=== PATIENT | female | born 1985 | race Caucasian/White ===

== ENCOUNTER 2017-03-22 21:43 | Emergency (ER) | payer OTHER ==
[~2017-03-22] VITALS: Ht 172.7 cm; Wt 68.2 kg
[2017-03-22 21:47] VITALS: BP 129/78; PULSE 100; RESP 12; O2SAT 100
[2017-03-22 22:07] VITALS: BP 128/84; PULSE 94; O2SAT 99
--- NOTE | 2017-03-22 22:08 | ED.REPORT ---
HPI-Extremity Problem Lower Date of Service Mar 22, 2017 ED Provider: Bart Lorenzana DO A 31 year old female with no pertinent history is brought to the ED via EMS due to right ankle pain. The pt was at a roller derby this evening when she fell, experiencing immediate right ankle pain that has persisted since. No other trauma is reported. The pt last ate at 14:00. She was given morphine and Zofran en route. Nursing Notes Stated Complaint: POSS DISLOCATED R ANKLE FRACTURE Chief Complaint: Extremity Trauma Nursing Notes Reviewed: Yes Allergies: Coded Allergies: latex (Verified Allergy, Intermediate, 03/22/17) General Time Seen by MD: 22:07 Chief Complaint Ankle injury right Hx Obtained From: Patient, EMS Arrived By: Ambulance Onset Occurred: 1 - 4 hours ago Symptom Duration: Since onset Recent Healthcare: No recent doctor visit, No recent hospitalization Similar Sx Previous: No Past Medical History Past Medical History none reported Past Surgical History none reported Smoking History Unknown if Ever Smoker Social History Other Social History: Good social support Ambulatory Status Independent Review of Systems Musculoskeletal: Reports: Extremity pain, Denies: Back pain, Neck pain Skin: Denies Rash Complete sys rev & neg: except as marked. Respiratory: Denies: Non-productive cough, Shortness of breath Cardiovascular: Denies: Chest pain GI: Denies: Abdominal pain, Vomiting Physical Exam Initial Vital Signs Vital Signs (First) Date Time Temp Pulse Resp B/P Pulse Ox O2 Delivery O2 Flow Rate FiO2 03/22/17 21:47 37 100 12 129/78 100 Room Air Initial VS: Reviewed Lower Extremity / Pelvis / MS: Neurologic intact, Vascular intact Ankle / Foot: Neurologic intact, Vascular intact obvious posterior deformity of the right ankle General/Constitutional: Awake, Alert Respiratory / Chest: Atraumatic, Breath sounds NL, Breath sounds = bilat, No respiratory distress Cardiovascular: Heart rate NL, Regular rhythm, Heart sounds NL Skin: Color NL, No rash, Warm, Dry Neurologic: Oriented X3, Speech NL, No motor deficits, No sensory deficits Head / Eyes: Atraumatic, Normocephalic, PERRL, EOMI ENT: Atraumatic, Airway patent, Mucous membranes moist Neck: Atraumatic, Supple, Full range of motion Abdomen: Atraumatic, Soft, Non-tender Back: Atraumatic, Full range of motion Upper Extremity / MS: Atraumatic, Full range of motion Psychiatric: Affect NL, Mood NL Interpretation & Diagnostics Lab Results Interpretation Test 03/22/17 23:29 Hold Purple Top Tube Received (Received) Hold Blue Top Tube Received (Received) Hold [place] Top Tube Received (Received) Pulse Oximetry Interpretation Pulse Oximetry Interpretation: 100% on room air Pulse Oximetry: Pulse Ox normal X-Ray Interpretation Xray Interpretation: trimalleolar fracture dislocation X-Ray Ordered: Ankle right Interpretation / Wet Read by: Wet read ED physician Xray Interpretation: reduced posterior ankle fracture dislocation X-Ray Ordered: Ankle right Interpretation / Wet Read by: Wet read ED physician Procedures Proced Mod Sedation/Analgesia No history of sedationanalgesia Time: 22:40 Procedure Performed by: ED physician Sedation Time: 10 - 15 min Consent / Setup: Informed consent provided, Consent from patient, Time-out performed, Hand hygiene observed, Stand sterile technique, Position supine Indication: Fracture reduction Preparation: wire stitcher operator applied, Pulse oximeter applied, Constant attendance, IV access established, Eval last meal time, Supplemental oxygen VS Prior to Procedure: All vital signs normal, O2 saturation normal, Blood pressure normal, Heart Rate normal, Respiratory rate normal Mallampati: Class & Anatomy: 1 tonsils/uvula/s palate Airway Exam: Normal facial anatomy CVS/Resp Exam: Normal breath sounds, Normal heart sounds Neuro Exam: Alert Sedation: Sedation: Propofol, Analgesia: Fentanyl ASA Classification: 1 normal healthy patient Response During Procedure: Handled secretions adeq, Maintained airway well, Oxygenation stable, Sedation appropriate, Vital signs stable Complications During/After: None Reversal: None required Mental Status After Procedure: Alert, Oriented X3 Post-Procedure: Alert prior to discharge Attestation: I performed procedure, I performed sedation Reduction Dislocated Ankle right ankle fracture dislocation reduction anterior posterior traction reduction Time: 22:40 Procedure Performed by: ED physician Consent / Setup: Informed consent provided, Consent from patient, Time-out performed, Oxygen administered, Pulse oximeter applied, wire stitcher operator applied , Hand hygiene observed, Stand sterile technique Procedural Sedation/Analgesia: Sedation: Versed, Analgesia: Fentanyl Which Ankle and Technique: Right ankle Neurovascular: Intact pre-procedure, Intact post-procedure Post-Procedure / Complications: Reduced per examination, Procedure successful, X-ray disloc reduced, Posterior splint applied, Condition improved, Tolerated procedure well, Patient stable Re-Eval/Medical Decision Med Decision/Clinical Course The ankle was clinically subluxed posteriorly. With anterior traction while supporting the tibia and fibula or ankle slid forward into more anatomic alignment. Her ankle looked to be in anatomic alignment postreduction. X-ray she will show that she has a unstable ankle with fracture. She will need surgery. She is much better after the reduction well. Bounding pedal pulses. Normal sensory and motor examination. Posterior splint with side stirrups was placed. This was a bit tight so it was cut up the front and then taped shut. After this she felt much better and she was able to get up and get about on crutches. Recommend close outpatient follow-up with orthopedics for definitive care. Source of Hx: Old records Re-Evaluation/Progress #1: Time of Eval: 22:40 Patient Status: Condition improved Re-Evaluation/Progress Note: Pt rechecked and fracture dislocation is reduced without complication. Re-Evaluation/Progress #2: Time of Eval: 23:20 Patient Status: Condition improved Re-Evaluation/Progress Note: Pt rechecked, who is alert and comfortable. The diagnosis and plan for discharge are discussed. The pt understands and agrees with the plan. All questions are addressed at this time. Counseled Regarding: Diagnosis, Lab results, Need for follow-up, When/why to return to ED Discharge & Departure Impression: Primary Impression: Trimalleolar fracture of right ankle Encounter type: initial encounter Fracture type: closed Qualified Code: S82.851A - Displaced trimalleolar fracture of right lower leg, initial encounter for closed fracture Disposition: Home Discharge Condition All VS Reviewed: Yes Condition: Stable Patient Instructions: Ankle Fracture (ED), Crutch Instructions (ED), Splint Care (ED) Additional Instructions: Take one to two Percocet every six hours as needed for severe pain. Do not drink , drive or consume acetaminophen while taking the [place]. Call orthopedics in the morning to arrange a follow up appointment. Wear the splint until you are seen in follow up and use the crutches for additional support. Call your primary care physician to arrange a follow up appointment next week for further evaluation. Return to the emergency department if you develop any new or worsening symptoms such as numbness, tingling or worsening pain. Referrals: OTHER,PHYSICIAN (PCP) Vikas Roe MDibe Attestation Portions of this note were transcribed by Dede Butler. I, Dr. Lorenzana personally performed the history, physical exam and medical decision-making; I reviewed and confirmed the accuracy of the information in the transcribed note. copies to: Vikas Roe MD, Todd P DO Mar 22, 2017 22:08 DEDE BUTLER Mar 22, 2017 22:16
[2017-03-22] MEDS ORDERED: fentaNYL-PF 50 mCg/mL 2 mL Inj IVPUSH ONE (22:25)
[2017-03-22 22:49] VITALS: BP 138/88; PULSE 96; O2SAT 99
[2017-03-22] MEDS ORDERED: _HYDROcodone/APAP 5-325 mg Tablet PO PRN (23:35)
[2017-03-22] MEDS ORDERED: _Ondansetron ODT 4 mg Tablet PO PRN (23:55)
[2017-03-23 00:20] VITALS: BP 123/74; PULSE 98; O2SAT 97
[2017-03-23] MEDS ORDERED: Ondansetron 2 mg/mL 2 mL Inj ONE ×2 (00:25→01:08)
[2017-03-23 01:00] VITALS: BP 121/74; PULSE 75; O2SAT 99
[2017-03-23] MEDS ORDERED: Promethazine Inj 12.5 MG in Dextrose 5%-Pha MIX 50 ML IV ONE (01:25)
[2017-03-23 01:46] VITALS: BP 111/91; PULSE 67; O2SAT 100
[2017-03-23 02:01] VITALS: BP 118/76; PULSE 74; O2SAT 96
--- NOTE | 2017-03-23 08:34 | DRSVH ---
PROCEDURE: X-RAY RIGHT ANKLE, TWO VIEWS ([id number]) INDICATIONS: injury TECHNIQUE: 2 views of the ankle were acquired. COMPARISON: None. FINDINGS: Bones: Bimalleolar right ankle fracture/subluxation is present. There is oblique intra-articular fra cture extending through the distal fibula with mild lateral displacement of distal fracture component . Mildly posteriorly displaced intra-articular posterior malleolar fracture. No definite medial mal leolar fracture is seen. Soft tissues: No tibiotalar joint effusion. Achilles tendon appears normal. IMPRESSION: Bimalleolar right ankle fracture with widening of the medial ankle mortise. Dictated by: Naif GARCIA Interpreted: Amelia Villagomez MD on 03/23/2017 at 8:32 Transcribed by: KRISTINA on 03/23/2017 at 8:33 Approved by: Amelia Villagomez MD, PhD on 03/23/2017 at 11:11
--- NOTE | 2017-03-23 11:12 | DRSVH ---
PROCEDURE: X-RAY RIGHT ANKLE, MINIMUM THREE VIEWS ([id number]) INDICATIONS: POST REDUCTION TECHNIQUE: 3 views of the ankle were acquired. COMPARISON: [facility], CR, XR ANKLE 2VW RT, 03/22/2017, 22:06. FINDINGS: Bones: Fine rex detail obscured by overlying cast material. Within these limits, no significant i nterval change status post close reduction of bimalleolar right ankle fracture with persistent wideni ng of the medial ankle mortise. Soft tissues: No tibiotalar joint effusion. Achilles tendon appears normal. IMPRESSION: Placement of cast otherwise no significant interval change in alignment of bimalleolar fr acture/right ankle subluxation. Dictated by: Naif Prado RRA Interpreted: Amelia Villagomez MD on 03/23/2017 at 8:40 Approved by: Amelia Villagomez MD, PhD on 03/23/2017 at 11:10
[2017-03-29] MEDS ORDERED: ONDA4TAB6 PO (13:50)
[2017-03-29] MEDS ORDERED: HYDR-4003 PO (13:50)
== END 2017-03-23 02:02 | disposition home or self-care (01) ==
LOC: SED 21:43
DX: S82.851A Displaced trimalleolar fracture of right lower leg, initial encounter for closed fracture (principal); V00.121A Fall from non-in-line roller-skates, initial encounter; Y93.51 Activity, roller skating (inline) and skateboarding; Y99.8 Other external cause status; Y92.331 Roller skating rink as the place of occurrence of the external cause; R11.0 Nausea; Z91.040 Latex allergy status
CPT/HCPCS: 27818; 73600; 73610; 96374; 96375; 96376; 99152; 99284; J2250; J2405; J2550; J3010

== ENCOUNTER → 2017-03-31 | Day surgery (SDC) | payer OTHER ==
--- NOTE | 2017-03-30 18:51 | PCM.HPANE ---
Patient Data Surgeon Admitting Provider: Attending Provider:Lio Resendez DPM Primary Care Physician:Amado Other Provider:Arun Kirby Anesthesia Reason for Visit Right Ankle Fracture Ht/WT & BMI Height (Feet): 5 Height (Inches): 8 Weight (Kilograms): 68.1 Body Mass Index 22.00 Allergies Coded Allergies: latex (Verified Allergy, Severe, RASH, 03/29/17) iodine (Verified Allergy, Unknown, UNKNOWN, 03/29/17) Past Anesthesia History Anesthesia History: Positive for:: Anesthesia Reactions, Malignant Hyperthermia , Denies:: Fam Anesthesia Reaction, Fam Malignant Hypertherm Diabetes History Hx Diabetes?: No MRSA MRSA: No Medications Reported Medications Ondansetron (Zofran)4 Mg Tablet4 Mg PO Q6H PRN For Nausea 03/29/17 Hydrocodone-Acetaminophen 5-325 mg 1 Each Tablet1 Tablet PO Q6H PRN For Pain Ref 0 03/29/17 History History of ENT Problems?: Yes Other HEENT Pertinent History: S/P WISDOM TEETH EXTRACTIONS Hx of Heart Problems?: No Cardiovascular History: Denies:: Congestive Heart Failure Heart Murmur Hypertension Hx of Respiratory Problem?: No Respiratory History: Denies:: Tuberculosis Use of C-PAP Machine Hx Neurologic Problems?: No Hx of GI Problems?: Yes Other GI Pertinent History: S/P APPY Hx of Problems?: No Female Hx: Denies:: Currently Skin History: Denies:: History Skin Disorders? Pressure Ulcers Hx Musculoskeletal Problems?: Yes Musculoskeletal History: Positive for:: Musculoskeletal Trauma (HX MULT FX R/ T SPORTS RT ANKLE FX=CURRENT PROBLEM) Hx of Psycho/Social Problems?: Yes Psycho Social History: Positive for:: Anxiety (SITUATIONAL) Hx Surgeries?: Yes (WISDOM TEETH EXTRACTIONS,APPY) Hx Any Other Health Problems?: Yes Other History: Denies:: Cancer Endocrine Disease Hospitalization Thyroid Disease Hx Diabetes: No Smoking Status: Unknown if Ever Smoker Have You Smoked inLast 12 mo: No Stop/Bang S-Snoring: Do You Snore Loudly: No T-Tired: feel tired, fatigued: No O-Obsered: Observed not breath: No P-Blood Pressure: treated: No B- Body Mass Index > 35 kg/m2: No A- Age over 50: No N- Neck Large Circumference: No G- Gender Male: No LIZ Total Score: 0 Risk Assessment Category Category 1A: Patient has history of documented sleep apnea, and HAS NOT received any narcotic, sedative or anesthesia administration during this stay. Category 1B: Patient has history of documented sleep apnea, and HAS received any narcotic , sedative or anesthesia administration during this stay Category 2: Patient has SUSPECTED Obstructive Sleep Apnea, and HAS received any narcotic , sedative or anesthesia administration during this stay. Category 3: Patient has SUSPECTED Obstructive Sleep Apnea and HAS NOT received narcotic, sedative or anesthesia administration during this stay. Category 4: Outpatient in Procedural Areas with known sleep apnea or who screen positive for High Risk via the STOP/BANG questionnaire. Plan Impression Patient chart reviewed, patient interviewed and anesthestic plan with risks, benefits, and alternatives discussed, and informed consent obtained. Estevan Hilario MD Mar 30, 2017 18:51
[2017-03-31] VITALS (12 sets, daily range): BP systolic 113–131; BP diastolic 62–81; PULSE 6–92; RESP 13–17; O2SAT 98–100
[~2017-03-31] VITALS: Ht 172.7 cm; Wt 69.6 kg
[~2017-03-31] MED LIST: CeFAZolin Inj 2 GM in IV Premix 1 EACH IV ONE; Dexamethasone 4 mg/mL Inj IVPUSH PRN; Dexamethasone 4 mg/mL Inj ONE; EPHEDrine Sulfate 50 mg/mL Inj IVPUSH PRN; HYDR-4003 PO; HYDROcodone-APAP 5-325 mg Tablet PO PRN; HYDROmorphone 1 mg/mL Inj IVPUSH PRN; Lactated Ringer's 1,000 ML IV SCH; Lactated Ringer's 500 ML IV PRN; Lidocaine 1%-Epi 1:100,000 20 mL Inj INFILTRATE ONE; MetoCLOpramide 5 mg/mL 2 mL Inj IVPUSH PRN; ONDA4TAB6 PO; Ondansetron 2 mg/mL 2 mL Inj IVPUSH PRN; Ondansetron 2 mg/mL 2 mL Inj ONE; Phenylephrine 10,000 mCg/mL Inj IVPUSH PRN; Propofol 10,000 mCg/mL 20 mL Inj ONE; Ropivacaine-PF 0.5% 30 mL Inj ONE; fentaNYL-PF 50 mCg/mL 2 mL Inj IVPUSH PRN; fentaNYL-PF 50 mCg/mL 2 mL Inj ONE
[2017-03-31] MEDS: Lactated Ringer's 1,000 ML IV SCH ×2 (10:59→12:18)
--- NOTE | 2017-03-31 13:26 | PCM.HPANE ---
Patient Data Date of Service: Mar 31, 2017 Surgeon Admitting Provider: Attending Provider:Lio Resendez DPM Primary Care Physician:Amado Other Provider:Arun Kirby Anesthesia Reason for Visit Right Ankle Fracture Ht/WT & BMI Height (Feet): 5 Height (Inches): 8.00 Weight (Kilograms): 69.600 Body Mass Index 23.00 Allergies Coded Allergies: latex (Verified Allergy, Severe, RASH, 03/29/17) iodine (Verified Allergy, Unknown, UNKNOWN, 03/29/17) Past Anesthesia History Anesthesia History: Denies:: Abnormal Airway, Fam Anesthesia Reaction, Fam Malignant Hypertherm, Malignant Hyperthermia Additional Information: pt and sister have no prior knowlege of hx of MH nor family hx of MH (and both parents have had anesthesia). Previous charting of MH appears to be chart error. Diabetes History Hx Diabetes?: No MRSA MRSA: No Medications Hypertension Medication: No Home Meds Incl Beta Ankita: No Reported Medications Ondansetron (Zofran)4 Mg Tablet4 Mg PO Q6H PRN For Nausea 03/29/17 Hydrocodone-Acetaminophen 5-325 mg 1 Each Tablet1 Tablet PO Q6H PRN For Pain Ref 0 03/29/17 History History of ENT Problems?: Yes HEENT History: Denies:: Abnormal Airway Denture Type: None Teeth Condition: Within Normal Limits Other HEENT Pertinent History: S/P WISDOM TEETH EXTRACTIONS Hx of Heart Problems?: No Cardiovascular History: Denies:: Congestive Heart Failure Heart Murmur Hypertension Hx of Respiratory Problem?: No Respiratory History: Denies:: Tuberculosis Use of C-PAP Machine Hx Neurologic Problems?: No Hx of GI Problems?: Yes Other GI Pertinent History: S/P APPY Hx of Problems?: No Female Hx: Denies:: Currently Skin History: Denies:: History Skin Disorders? Pressure Ulcers Hx Musculoskeletal Problems?: Yes Musculoskeletal History: Positive for:: Musculoskeletal Trauma (HX MULT FX R/ T SPORTS RT ANKLE FX=CURRENT PROBLEM) Hx of Psycho/Social Problems?: Yes Psycho Social History: Positive for:: Anxiety (SITUATIONAL) Hx Surgeries?: Yes (WISDOM TEETH EXTRACTIONS,APPY) Hx Any Other Health Problems?: Yes Other History: Denies:: Cancer Endocrine Disease Hospitalization Thyroid Disease Hx Diabetes: No Smoking Status: Unknown if Ever Smoker Have You Smoked inLast 12 mo: No Stop/Bang S-Snoring: Do You Snore Loudly: No T-Tired: feel tired, fatigued: No O-Obsered: Observed not breath: No P-Blood Pressure: treated: No B- Body Mass Index > 35 kg/m2: No A- Age over 50: No N- Neck Large Circumference: No G- Gender Male: No LIZ Total Score: 0 LIZ Risk Assessment: Low Risk, <3 Yes Risk Assessment Category Category 1A: Patient has history of documented sleep apnea, and HAS NOT received any narcotic, sedative or anesthesia administration during this stay. Category 1B: Patient has history of documented sleep apnea, and HAS received any narcotic , sedative or anesthesia administration during this stay Category 2: Patient has SUSPECTED Obstructive Sleep Apnea, and HAS received any narcotic , sedative or anesthesia administration during this stay. Category 3: Patient has SUSPECTED Obstructive Sleep Apnea and HAS NOT received narcotic, sedative or anesthesia administration during this stay. Category 4: Outpatient in Procedural Areas with known sleep apnea or who screen positive for High Risk via the STOP/BANG questionnaire. Exam Exam Vital Signs Vital Signs Date Time Temp Pulse Resp B/P Pulse Ox O2 Delivery O2 Flow Rate FiO2 03/31/17 11:32 36.5 82 16 131/81 98 Room Air 03/31/17 11:18 36.5 82 16 131/81 98 Room Air General Appearance: Alert, Oriented X3 HEENT/AIRWAY: MP 1, MP 2 Lungs: Clear to Auscultation Meds/Labs/Diagnostics Admission Meds Current Medications Cefazolin Sodium/ Dextrose 2 gm/ Premix 50 ml @ 100 mls/hr ONCE ONCE IV Last administered on 03/31/17 12:47; Start 03/31/17 at 11:25; Stop 03/31/17 at 11:54 ; Status DC Lactated Ringer's (Lr) 1,000 ml @ 120 mls/hr Q8H20M IV Last administered on 12:18; Start 03/31/17 at 05:00; Stop 03/31/17 at 13:19 Lidocaine/ Epinephrine (Xylocaine 1%-Epinephrine 1:100,000 Inj) 20 ml STK-MED ONCE INFILTRATE Last administered on 03/31/17 13:01; Start 03/31/17 at 13:01; Stop 03/31/17 at 13:10; Status DC Plan Impression Patient chart reviewed, patient interviewed and anesthestic plan with risks, benefits, and alternatives discussed, and informed consent obtained. NPO per Anesth. Guidelines: Yes ASA Physical Status: ASA1 Normal Healthy Anesthetic Plan: GA Bene/Risks/Altern/Consents: Yes HP Complete Prior to Induction: Yes Steven Falk MD Mar 31, 2017 13:26
--- NOTE | 2017-03-31 14:32 | PCM.PODPO ---
Podiatry Operative Report Date of Service: Mar 31, 2017 Date of Service Mar 31, 2017 Pre Operative Diagnosis Ankle fracture right lower extremity Post Operative Diagnosis Same as preoperative diagnoses Procedure Open reduction internal fixation right ankle Surgeon Surgeon: Lio Resendez DPM Assistants: None Indication for Procedure Displaced right ankle fracture Findings Displaced distal fibular fracture, minimally displaced posterior malleolus fracture. Details of Procedure Patient was identified in the preoperative holding area. All preoperative comorbidities and allergies were identified and thoroughly discussed. The patient was transported into the operating room and placed on the operating room table in the normal supine position. A preoperative popliteal block was performed by the anesthesia service. The patient was then prepped and draped following induction of general anesthesia by the anesthesia service. Attention was first paid to the ankle. An approximately 10 cm incision was made overlying the distal aspect of the right fibular shaft and lateral malleolus. Once that initially her skin all subcutaneous neurovascular structures were identified and retracted out of the surgical field. Blunt dissection was carried down through subcutaneous tissue to deep fascia. Gentle skin retraction was performed utilizing a [place] her. Sharp dissection was carried through subcutaneous deep fascia down directly to the lateral aspect of the fibula. Deep fascia and periosteum were reflected both anteriorly and posteriorly revealing the lateral wall of the fibula and distal fibular shaft fracture. The fracture was noted to be approximately 1 cm laterally displaced. Gentle distraction was performed by inverting the ankle and the fracture site was copious he flushed with large amounts of normal saline and lightly debrided utilizing a curet. Reduction of the ankle fracture was performed and reduction was maintained temporarily utilizing a lobster claw style bone clamp. A 3.5 mm fully threaded cortical screw was then inserted in typical lag style fashion across the fracture. The bone clamp was removed and the fracture maintained reduction. A Synthes distal fibular locking plate was then inserted on the lateral aspect of the fibula realizing intraoperative C-arm x-ray to verify screw placement. Following placement of distal fibular internal fixation the ankle was stressed under fluoroscopy no widening of the ankle mortise was noted and posterior translation of the foot was not possible as the posterior malleolus fragment remained well attached to surrounding soft tissue. Inspection of the posterior malleolus fragment revealed anatomical alignment following reduction with adequate stability. The decision was made not to perform internal fixation of the posterior malleolar fragment. The lateral ankle incision was then closely flushed with large amounts of normal saline. Deep closure was performed utilizing number 3. 0 Vicryl and skin closure was performed utilizing 4. 0 Vicryl in a subcuticular type suture. This patient was then dressed utilizing Adaptic sterile 4 x 4 gauze Kerlix and the patient was placed into a minimally compressive Quiles style compression dressing with a posterior splint. No competitions occur during this procedure. Grafts, Implants: Implants-See Implant Record Complications There were no periprocedural complications identified. Condition Stable Anesthetic Administered: GA Catheters: None Output, Estimated Blood Loss: 30 Blood Admin during surgery: No Surgical Cast or Splint: Well-padded Short Leg Splint Surgical Specimen Removed: No Specimen sent to Pathology: No Post Operative Plan Ice and elevate right lower extremity Nonweightbearing right lower extremity Keep dressing clean dry and intact Follow-up in 1 week Contact office with any questions or concerns regarding care Discharged to home when stable Lio Resendez DPM Mar 31, 2017 14:32
[2017-03-31] MEDS: fentaNYL-PF 50 mCg/mL 2 mL Inj IVPUSH PRN ×2 (14:37→14:55)
--- NOTE | 2017-03-31 15:06 | PCM.ANEP1 ---
Post Anesthesia PACU Phase 1 Assessment Vital Signs Vital Signs Date Time Temp Pulse Resp B/P Pulse Ox O2 Delivery O2 Flow Rate FiO2 03/31/17 15:00 6 13 117/62 100 Room Air 03/31/17 14:55 62 14 119/64 100 Room Air 03/31/17 14:50 65 13 123/65 100 Room Air 03/31/17 14:45 63 14 124/62 100 Room Air 03/31/17 14:40 70 17 126/69 100 Room Air 03/31/17 14:35 74 15 125/64 100 Room Air 03/31/17 14:30 36.3 82 17 128/64 100 Room Air 03/31/17 14:25 92 15 115/78 100 Room Air 03/31/17 14:21 36.3 85 15 113/65 100 Room Air 03/31/17 11:32 36.5 82 16 131/81 98 Room Air 03/31/17 11:18 36.5 82 16 131/81 98 Room Air Anesthetic Administered: GA Level of Alertness: Awake, talking Pain: Yes Pain Scale Score: 4 Nausea or Vomiting: No CV Function & Hydration Stable: Yes Airway Device: Oxygen Delivery: Room Air Lungs: Clear to Auscultation PACU Phase 2 Assessment Complications: No Follow up Care: N/A Patient Instructions Provided: N/A Steven Falk MD Mar 31, 2017 15:06
== END | disposition home or self-care (01) ==
LOC: SAS 10:53
PROVIDERS: ATTEND Podiatrist Foot & Ankle Surgery
DX: S82.841A Displaced bimalleolar fracture of right lower leg, initial encounter for closed fracture (principal); S93.04XA Dislocation of right ankle joint, initial encounter; F41.9 Anxiety disorder, unspecified; W18.39XA Other fall on same level, initial encounter; Y93.69 Activity, other involving other sports and athletics played as a team or group; Y92.9 Unspecified place or not applicable; Y99.8 Other external cause status
CPT/HCPCS: 27814; 76000; 76942; C1713; J0690; J1100; J1885; J2250; J2405; J2704; J2795; J3010; J7120